=== PATIENT | male | born 1975 | race African-American/Black ===

== ENCOUNTER 2017-12-21 23:45 | Emergency (ER) | payer OTHER ==
[~2017-12-21] VITALS: Ht 185.4 cm; Wt 113.4 kg
[2017-12-21] MEDS ORDERED: NKM (23:50)
[2017-12-21 23:58] VITALS: BP 155/109
--- NOTE | 2017-12-22 00:28 | Emergency Room Report ---
History of Present Illness General Chief Complaint: Behavioral Complaint Source: Patient Present Illness HPI Is a 42-year-old male brought in by police for medical clearance. He was walking on the street without pants on. They arrested him because he has an outstanding warrant. Patient then became confused and not answering questions was shaking. Now is back to baseline. He said that he had some alcohol tonight for the Superbowl. Also smoked some marijuana and ate a marijuana edible. Said that he had a bad trip. No trauma. No complaint right now. Allergies: Coded Allergies: No Known Allergies (Unverified , 12/21/17) Patient History Past Medical History: see triage record, old chart reviewed Past Surgical History: none Pertinent Family History: none Social History: Reports: alcohol use Immunizations: other Reviewed Nursing Documentation: PMH: Agreed, PSxH: Agreed Nursing Documentation-PMH Past Medical History: No Stated History Review of Systems Eye: Denies: eye pain, blurred vision ENT: Denies: ear pain, nose congestion, throat swelling Respiratory: Denies: cough, shortness of breath Cardiovascular: Denies: chest pain, palpitations Gastrointestinal: Denies: abdominal pain, diarrhea, nausea, vomiting Musculoskeletal: Denies: back pain, joint pain Skin: Denies: rash Neurological: Denies: headache, numbness Endocrine: Denies: increased thirst, increased urine Hematologic/Lymphatic: Denies: easy bruising All Other Systems: negative except mentioned in HPI Physical Exam Vital Signs Date Time Temp Pulse Resp B/P (MAP) Pulse Ox O2 Delivery O2 Flow Rate FiO2 12/21/17 23:51 97.2 96 16 155/109 95 Room Air vitals normal except for high blood pressure Sp02 EP Interpretation: reviewed, normal General Appearance: well appearing, no apparent distress, alert Head: normocephalic, atraumatic Eyes: bilateral eye PERRL, bilateral eye EOMI ENT: hearing grossly normal, normal pharynx Neck: full range of motion, supple, no meningismus Respiratory: chest non-tender, lungs clear, normal breath sounds Cardiovascular #1: regular rate, rhythm, no murmur Gastrointestinal: normal bowel sounds, non tender, no mass, no organomegaly, no bruit, non-distended Musculoskeletal: back normal, gait/station normal, normal range of motion Psychiatric: mood/affect normal Skin: warm/dry Medical Decision Making Diagnostic Impression: Primary Impression: Drug-induced psychotic disorder Qualified Codes: F19.959 - Other psychoactive substance use, unspecified with psychoactive substance-induced psychotic disorder, unspecified ER Course Patient presents with a drug-induced psychosis. Resolved now. He is medically clear for booking. We'll discharge home. Last Vital Signs Date Time Temp Pulse Resp B/P (MAP) Pulse Ox O2 Delivery O2 Flow Rate FiO2 12/21/17 23:58 97.2 96 16 155/109 95 Room Air Status: improved Disposition: D/C TO LAW ENFORCEMENT IN [facility] Condition: Stable Additional Instructions: Abstain from drugs and alcohol. Followup your Dr. in 7 days. Return for worse. ALANA NI M.D. Dec 22, 2017 00:28
[2017-12-22 00:30] VITALS: BP 155/109
== END 2017-12-22 00:30 ==
LOC: EDBD 23:45 → EMR 12-22 00:15
DX: F12.959 Cannabis use, unspecified with psychotic disorder, unspecified (principal); Z72.89 Other problems related to lifestyle
CPT/HCPCS: 99283